=== PATIENT | female | born 1990 | race Caucasian/White ===

== ENCOUNTER 2016-07-14 05:30 | Emergency (ER) | payer OTHER ==
[~2016-07-14] VITALS: Ht 162.6 cm; Wt 77.0 kg
[~2016-07-14 05:30] MED LIST: ABL10 PO; GABA1CAP5 PO; TRAZ100T29 PO
[2016-07-14 05:35] VITALS: BP 105/64; PULSE 81; TEMP 36.8; O2SAT 97; Ht 162.6 cm; Wt 77.0 kg
[2016-07-14] MEDS ORDERED: IBUPROFEN 600 MG TAB PO STA (05:55)
[2016-07-14] MEDS ORDERED: MTR800 PO (06:18)
--- NOTE | 2016-07-14 06:22 | EMERGENCY ROOM VISIT NOTE ---
History Report prepared by Tate: Akila Reeder Under the Supervision of: Dr. Danica England D.O. 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 She hit her elbows on the edge of the bathtub when she fell and also landed with her lower back on the edge of the tub. She is now complaining of lower back pain secondary to her fall. Her pain is worse on the right side and it radiates up into her midback. Movement, walking, and palpation exacerbate her pain. She rates her pain as an 8.5/10 in severity. Her fiance had to help her up as she was unable to get up on her own. She is unable to lay flat because of the pain and states that she was not able to sleep. The patient took ibuprofen for pain at home. She has chronic lower back pain, but states that this pain feels different from her chronic pain. She denies LOC. 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 A total of 10 systems reviewed and were otherwise negative. Past Medical & Surgical Medical Problems: (1) Migraine (2) Stomach problems Surgical Problems: (1) Hx of tubal ligation Family History Diabetes mellitus Gallbladder disease Hypertension Kidney disease Kidney stones Social History Smoking Status: Former Smoker Alcohol Use: occasionally Drug Use: none Marital Status: in relationship Housing Status: lives with significant other Occupation Status: employed Current/Historical Medications Scheduled Aripiprazole (Abilify), 10 MG PO QAM Gabapentin (Neurontin), 400 MG PO TID Trazodone Hcl (Trazodone), 100 MG PO HS Scheduled PRN Ibuprofen (Ibuprofen), 800 MG PO Q8 PRN for Pain Allergies Coded Allergies: Ketorolac Tromethamine (Verified Allergy, Intermediate, RASH, GI UPSET, 07/14/16) Tramadol (Verified Allergy, Intermediate, SAH, GI UPSET, 07/14/16) Uncoded Allergies: ONIONS (Adverse Reaction, Intermediate, N/V/D, 05/17/15) Physical Exam Vital Signs Date Time Temp Pulse Resp B/P Pulse Ox O2 Delivery O2 Flow Rate FiO2 07/14/16 05:35 36.8 81 20 105/64 97 Room Air Physical Exam HEENT: Head - normocephalic and atraumatic. Pupils are equal, round, and reactive to light. Extraocular eye muscles are intact and sclera are anicteric. Nose - moist nasal mucosa without evidence of trauma or discharge. Mouth - moist buccal mucosa with no trauma to the teeth or signs of malocclusion. Neck: The neck is supple and there is no pain to palpation over the posterior cervical spine and no obvious step-offs or deformities. There is no JVD or tracheal deviation. Chest: There are no signs of deformities, contusions or abrasions to the chest wall. There is no obvious crepitus or paradoxical chest rise. Heart: Regular, rate, and rhythm. There is a normal S1 and S2 with no murmurs, clicks, or gallops appreciated. Lungs: Clear to auscultation bilaterally with no wheezes, rales, or rhonchi. Abdomen: Soft, completely nontender, nondistended, with good bowel sounds. There is no sign of trauma such as contusions, abrasions or penetrations. There are no palpable pulsatile masses or hepatosplenomegaly. There is no guarding, rigidity, or rebound noted. Pelvis: Stable to rock and compression. Extremities: Contusion to the right elbow. There are easily palpable peripheral pulses. Neuro: The patient is awake and alert and easily able to follow commands. Muscle strength is 5 out of 5 in all 4 extremities. Otherwise, neuro exam is unremarkable. Back: There are no obvious step-offs or deformities noted. There was a contusion to the superior midlumbar spine and pain with palpation of that area as well as over the right low back. Medical Decision & Procedures ER Provider Diagnostic Interpretation: Patient refused her x-rays Medications Administered Medications (Trade) Dose Ordered Sig/Leticia Route Start Time Stop Time Status Last Admin Dose Admin Ibuprofen (Motrin Tab) 600 mg NOW STAT PO 07/14/16 05:55 07/14/16 05:56 DC 07/14/16 06:02 600 MG Procedure Medications Administered: Ibuprofen 600 mg PO ED Course 0544: Past medical records reviewed. The patient was evaluated in room A10. A complete history and physical exam was performed. I questioned her about her previous narcotic use for her chronic back pain and she informed me that her last dose was from Dr. Ma in December 2015. I referenced the PDMP and she had 120 tabs of 10mg oxycodone on 05/09/2016. She said that she did not want to tell me this because she thought that I would not treat her pain today. 0555: Ibuprofen 600 mg PO 0624: I reassessed the patient at this time The patient refused her x-ray. She states that it would be too painful for her to lay on the x-ray table. She was discharged home. Medical Decision The patient is a 26 year old female who presents to the ED with back pain secondary to a fall. Differential diagnosis includes renal contusion, lumbar strain, lumbar contusion, lumbar fracture. The patient is refusing her plain films. She became very upset after I questioned her about the large doses of prescribed narcotics from the entire fall 2015. The patient lists an allergy to tramadol and Toradol. I recommended that she use Tylenol or Advil. She will need to follow-up with Dr. Best who is cared for her in the past with regards to this new back pain. [place] Drug Monitoring Program Search Results: patient reviewed within database Impression Primary Impression: Low back pain Additional Impression: Fall from slipping on slippery surface Scribe Attestation The scribe's documentation has been prepared under my direction and personally reviewed by me in its entirety. I confirm that the note above accurately reflects all work, treatment, procedures, and medical decision making performed by me. Departure Information Dispostion Home / Self-Care Referrals Duyen Ma MD (PCP) Forms HOME CARE DOCUMENTATION FORM, IMPORTANT VISIT INFORMATION Patient Instructions My [facility] Additional Instructions Rest. Apply ice to the right low back. ibuprofen - 600mg every 6 hours with food for pain Follow up with Dr. Best Problem Qualifiers Primary Impression: Low back pain Chronicity: acute Back pain laterality: right Additional Impression: Fall from slipping on slippery surface Encounter type: initial encounter Qualified Codes: W01.0XXA - Fall on same level from slipping, tripping and stumbling without subsequent striking against object, initial encounter
== END 2016-07-14 06:37 | disposition home or self-care (01) ==
LOC: C.EDB 05:31 → C.EDA 06:37
DX: M54.5 Low back pain (principal); S50.01XA Contusion of right elbow, initial encounter; S30.0XXA Contusion of lower back and pelvis, initial encounter; W18.2XXA Fall in (into) shower or empty bathtub, initial encounter; Y92.002 Bathroom of unspecified non-institutional (private) residence as the place of occurrence of the external cause; Y93.E1 Activity, personal bathing and showering; G43.909 Migraine, unspecified, not intractable, without status migrainosus; Z83.3 Family history of diabetes mellitus; Z82.49 Family history of ischemic heart disease and other diseases of the circulatory system; Z84.1 Family history of disorders of kidney and ureter; Z87.891 Personal history of nicotine dependence

== ENCOUNTER 2017-02-11 01:33 | Emergency (ER) | payer OTHER ==
[~2017-02-11] VITALS: Ht 162.6 cm; Wt 68.8 kg
[~2017-02-11 01:33] MED LIST changes: +MTR800 PO
[2017-02-11 01:36] VITALS: TEMP 36.9; Ht 162.6 cm; Wt 68.8 kg
[2017-02-11] MEDS ORDERED: CLON0.5T3 PO (01:50)
[2017-02-11] MEDS ORDERED: DULO-24 PO (01:50)
[2017-02-11 01:56] VITALS: O2SAT 99
[2017-02-11] MEDS ORDERED: METHOCARBAMOL 100 MG/ML 10 ML VIAL IV ONE (02:00)
[2017-02-11 02:10] LABS: BASO % 0.2 %; BASO ABS # 0.02 K/uL (0-0.2); COMPLETE YES; EOS % 1.7 %; HEMATOCRIT 45.8 % (37-47); IG% 0.2 %; LYMPH % 33.2 %; LYMPH ABS # 2.85 K/uL (1.2-3.4); MEAN CELL VOLUME 84.3 fL (80-100); MEAN CORPUSCULAR HEMOGLOBIN 27.6 pg (25-34); MEAN CORPUSCULAR HGB CONC 32.8 g/dl (32-36); MEAN PLATELET VOLUME 11.8 fL (7.4-10.4); MONO % 10.4 %; NEUT % 54.3 %; PLATELET COUNT 213 K/uL (130-400); RED BLOOD COUNT 5.43 M/uL (4.2-5.4); WHITE BLOOD COUNT 8.58 K/uL (4.8-10.8)
[2017-02-11] MEDS ORDERED: BACLOFEN 10 MG TAB PO STA (02:13)
--- NOTE | 2017-02-11 02:36 | EMERGENCY ROOM VISIT NOTE ---
History Report prepared by Keenaibe: Joan Zamora Under the Supervision of: Dr. Sarkis Cam D.O. First contact with patient: 01:35 Chief Complaint: BACK PAIN Stated Complaint: BACK PAIN History of Present Illness The patient is a 26 year old female who presents to the Emergency Room by EMS with complaints of constant severe shooting back pain starting about 4 hours ago. The patient notes that she was diagnosed with low cartilage between her L5 , L6, and L7 by a Dr. Ann-Orthopedic Surgeon. She notes when she went to lay down for bed 4 hours ago she could not move. She has tingling and numbness in her legs. For pain, the patient takes 800 mg of ibuprofen and gabapentin 3 times a day. Source of History: patient Onset: 4 hours ago Position: back Quality: other (shooting) Timing: constant Associated Symptoms: + numbness Note: Pt notes tingling in her legs Review of Systems See HPI for pertinent positives and negatives. A total of ten systems were reviewed and were otherwise negative. Past Medical & Surgical Medical Problems: (1) Migraine (2) Stomach problems Surgical Problems: (1) Hx of tubal ligation Family History Diabetes mellitus Gallbladder disease Hypertension Kidney disease Kidney stones Social History Smoking Status: Former Smoker Alcohol Use: occasionally Drug Use: none Marital Status: in relationship Housing Status: lives with significant other Occupation Status: employed Current/Historical Medications Scheduled Aripiprazole (Abilify), 10 MG PO QAM Baclofen (Baclofen), 10 CAP PO BID Cephalexin Monohydrate (Keflex), 500 MG PO TID Duloxetine HCl (Cymbalta), 1 CAP PO DAILY Methylprednisolone (Medrol Dosepak), 1 PKT PO UD Trazodone Hcl (Trazodone), 100 MG PO HS Scheduled PRN Clonazepam (Klonopin), 1 TAB PO DAILY PRN for Anxiety Ibuprofen (Ibuprofen), 800 MG PO Q8 PRN for Pain Allergies Coded Allergies: Ketorolac Tromethamine (Verified Allergy, Intermediate, RASH, GI UPSET, 02/11/17) Tramadol (Verified Allergy, Intermediate, SAH, GI UPSET, 02/11/17) Uncoded Allergies: ONIONS (Adverse Reaction, Intermediate, N/V/D, 05/17/15) Physical Exam Vital Signs Date Time Temp Pulse Resp B/P (MAP) Pulse Ox O2 Delivery O2 Flow Rate FiO2 02/11/17 05:30 64 98 Room Air 02/11/17 05:11 110/73 02/11/17 04:14 78 18 105/67 100 Room Air 02/11/17 02:16 71 02/11/17 01:59 99 Room Air 02/11/17 01:56 99 Room Air 02/11/17 01:56 98 Room Air 02/11/17 01:36 36.9 76 18 99/63 98 Room Air Physical Exam GENERAL: Awake, alert, uncomfortable -appearing, in no distress HENT: Normocephalic, atraumatic. Oropharynx unremarkable. EYES: Normal conjunctiva. Sclera non-icteric. NECK: Supple. No nuchal rigidity. FROM. No JVD. RESPIRATORY: Clear to auscultation. CARDIAC: Regular rate, normal rhythm. Extremities warm and well perfused. Pulses equal. ABDOMEN: Soft, non-distended. No tenderness to palpation. No rebound or guarding. No masses. BACK: paraspinal tenderness right lumbar region with palpation. RECTAL: Deferred. MUSCULOSKELETAL: Chest examination reveals no tenderness. The back is symmetrical on inspection without obvious abnormality. There is no CVA tenderness to palpation. No joint edema. LOWER EXTREMITIES: Calves are equal size bilaterally and non-tender. No edema. No discoloration. NEURO: Vascularly intact distally in bilateral lower extremities, normal lower reflexes, normal proprioception; Pt able to move legs on stretcher; SKIN: No rash or jaundice noted. Medical Decision & Procedures ER Provider Diagnostic Interpretation: X ray results as stated below per my interpretation and radiologist interpretation. Other radiology results as stated below per my review and radiologist interpretation MRI L SPINE: L5-S1 mild disc desiccation, posterior disc bulge with central to left paracentral disc protrusion and associated small annular fissure. Mild foraminal narrowing. Mild mass effect on ventral sac without significant canal narrowing. Appearance is similar to prior MRI 08/17/15, except that the annular fissure is better demonstrated on current exam. Disc signal and height are otherwise maintained. Vertebral body height and bone marrow signal are maintained. No evidence of fracture. Conus medullaris terminates at L1. Visualized distal cord and cauda equina roots are unremarkable. No abnormal enhancement. Radiologist: Ajay Lam Laboratory Results 02/11/17 02:02 Red Blood Count 5.43, Mean Corpuscular Volume 84.3, Mean Corpuscular Hemoglobin 27.6, Mean Corpuscular Hemoglobin Concent 32.8, Mean Platelet Volume 11.8, Neutrophils (%) (Auto) 54.3, Lymphocytes (%) (Auto) 33.2, Monocytes (%) (Auto) 10.4, Eosinophils (%) (Auto) 1.7, Basophils (%) (Auto) 0.2, Neutrophils # (Auto ) 4.65, Lymphocytes # (Auto) 2.85, Monocytes # (Auto) 0.89, Eosinophils # (Auto ) 0.15, Basophils # (Auto) 0.02 02/11/17 01:55 Test 02/11/17 01:55 02/11/17 02:02 02/11/17 02:30 Anion Gap 8.0 mmol/L (3-11) Est Creatinine Clear Calc Drug Dose 109.3 ml/min Estimated GFR () 128.4 Estimated GFR (Non- 110.8 BUN/Creatinine Ratio 9.8 (10-20) Bedside Glucose 96 mg/dl (70-90) Calcium Level 8.2 mg/dl (8.5-10.1) Total Bilirubin 0.5 mg/dl (0.2-1) Direct Bilirubin 0.1 mg/dl (0-0.2) Aspartate Amino Transf (AST/SGOT) 7 U/L (15-37) Alanine Aminotransferase (ALT/SGPT) 12 U/L (12-78) Alkaline Phosphatase 46 U/L (45-117) Total Protein 7.0 gm/dl (6.4-8.2) Albumin 3.8 gm/dl (3.4-5.0) Thyroid Stimulating Hormone (TSH) 0.471 uIu/ml (0.300-4.500) White Blood Count 8.58 K/uL (4.8-10.8) Red Blood Count 5.43 M/uL (4.2-5.4) Hemoglobin 15.0 g/dL (12.0-16.0) Hematocrit 45.8 % (37-47) Mean Corpuscular Volume 84.3 fL (80-100) Mean Corpuscular Hemoglobin 27.6 pg (25-34) Mean Corpuscular Hemoglobin Concent 32.8 g/dl (32-36) Platelet Count 213 K/uL (130-400) Mean Platelet Volume 11.8 fL (7.4-10.4) Neutrophils (%) (Auto) 54.3 % Lymphocytes (%) (Auto) 33.2 % Monocytes (%) (Auto) 10.4 % Eosinophils (%) (Auto) 1.7 % Basophils (%) (Auto) 0.2 % Neutrophils # (Auto) 4.65 K/uL (1.4-6.5) Lymphocytes # (Auto) 2.85 K/uL (1.2-3.4) Monocytes # (Auto) 0.89 K/uL (0.11-0.59) Eosinophils # (Auto) 0.15 K/uL (0-0.5) Basophils # (Auto) 0.02 K/uL (0-0.2) RDW Standard Deviation 38.3 fL (36.4-46.3) RDW Coefficient of Variation 12.6 % (11.5-14.5) Immature Granulocyte % (Auto) 0.2 % Immature Granulocyte # (Auto) 0.02 K/uL (0.00-0.02) Urine Color YELLOW Urine Appearance CLOUDY (CLEAR) Urine pH >= 9.0 (4.5-7.5) Urine Specific [place] 1.024 (1.000-1.030) Urine Protein NEG (NEG) Urine Glucose (UA) NEG (NEG) Urine Ketones NEG (NEG) Urine Occult Blood TRACE (NEG) Urine Nitrite NEG (NEG) Urine Bilirubin NEG (NEG) Urine Urobilinogen NEG (NEG) Urine Leukocyte Esterase LARGE (NEG) Urine WBC (Auto) >30 /hpf (0-5) Urine RBC (Auto) 5-10 /hpf (0-4) Urine Hyaline Casts (Auto) 0 /lpf (0-5) Urine Epithelial Cells (Auto) 20-30 /lpf (0-5) Urine Bacteria (Auto) 1+ (NEG) Laboratory results reviewed by me Medications Administered Medications (Trade) Dose Ordered Sig/Leticia Route Start Time Stop Time Status Last Admin Dose Admin Baclofen (Lioresal Tab) 10 mg NOW STAT PO 02/11/17 02:13 02/11/17 02:14 DC 02/11/17 02:30 10 MG Morphine Sulfate (MoRPHine SULFATE INJ) 4 mg NOW STAT IV 02/11/17 04:53 02/11/17 04:54 DC 02/11/17 04:59 4 MG Ondansetron HCl (Zofran Inj) 4 mg NOW STAT IV 02/11/17 04:53 02/11/17 04:54 DC 02/11/17 04:59 4 MG Ceftriaxone Sodium (Rocephin Inj) 1 gm NOW STAT IV 02/11/17 04:53 02/11/17 04:54 DC 02/11/17 04:59 1 GM Dexamethasone Sodium Phosphate (Decadron Inj) 10 mg NOW STAT IV 02/11/17 05:02 02/11/17 05:03 DC 02/11/17 05:15 10 MG ED Course 0142: The patient was evaluated in room A3. A complete history and physical exam was performed. 0213: Baclofen 10 mg PO. 0330: Gadavist 6.5 mmol IV. 0453: Rocephin Inj 1 gm IV, Zofran Inj 4 mg IV, Morphine Sulfate 4 mg IV. 0502: Decadron Inj 10 mg IV. 0600: I reevaluated the patient. Discussed results and discharge instructions: She verbalized understanding and agreement. The patient is ready for discharge. Medical Decision Differential diagnosis includes lumbar strain, lumbar sprain, herniated disc, sciatica, radiculopathy, r/o cauda equina syndrome Pt able to roll, move legs, better after meds and steroids; MRI no change from ; no distress; will treat for uti as well; Case discussed with hospitalist, case reviewed with patient and mother at bedside. MRI is unchanged from August 2015. Patient was able to stand and ambulate in the emergency department. Patient will require strict follow-up with her orthopedic physician and return for worsening of symptoms Medication Reconcilliation Current Medication List: was personally reviewed by me Blood Pressure Screening Patient's blood pressure: Normal blood pressure Impression Primary Impression: Low back pain Additional Impressions: Radiculopathy of lumbosacral region UTI (urinary tract infection) Scribe Attestation The scribe's documentation has been prepared under my direction and personally reviewed by me in its entirety. I confirm that the note above accurately reflects all work, treatment, procedures, and medical decision making performed by me. Departure Information Dispostion Home / Self-Care Prescriptions Methylprednisolone (MEDROL DOSEPAK) 4 Mg Alvino 1 PKT PO UD for 6 Days, #1 PKT Prov: Sarkis Cam, DO 02/11/17 Baclofen (Baclofen) 10 Mg Tab 10 CAP PO BID for 5 Days, #100 CAP Prov: Sarkis Cam, DO 02/11/17 Cephalexin Monohydrate (Keflex) 500 Mg Cap 500 MG PO TID for 5 Days, #15 CAP Prov: Sarkis Cam, DO 02/11/17 Referrals Duyen Ma MD (PCP) Forms HOME CARE DOCUMENTATION FORM, IMPORTANT VISIT INFORMATION Patient Instructions ED UTI Cystitis Female, Lumbar Radiculopathy, My [facility] Problem Qualifiers
[2017-02-11 02:39] LABS: BUN/CREATININE RATIO 9.8 (10-20); CALCIUM 8.2 mg/dl (8.5-10.1); CREATININE 0.75 mg/dl (0.60-1.20); POTASSIUM 3.5 mmol/L (3.5-5.1)
[2017-02-11 02:42] LABS: URINE APPEARANCE CLOUDY (CLEAR); URINE BILIRUBIN NEG (NEG); URINE COLOR YELLOW; URINE EPITHELIAL CELL AUTO 20-30 /lpf (0-5); URINE NITRITE NEG (NEG); URINE PH >= 9.0 (4.5-7.5); URINE SPECIFIC GRAVITY 1.024 (1.000-1.030); UROBILINOGEN NEG (NEG)
[2017-02-11 02:50] LABS: THYROID STIMULATING HORMONE 0.471 uIu/ml (0.300-4.500)
[2017-02-11 03:04] LABS: REVIEW REQ? NO
[2017-02-11 03:05] LABS: MANUAL MICROSCOPIC REQUIRED? NO; SULFASALICYLIC ACID NEG (NEG)
[2017-02-11] MEDS ORDERED: GADAVIST IV PRN (03:30)
[2017-02-11] MEDS ORDERED: ONDANSETRON INJ 2 MG/ML 2 ML VIAL IV STA (04:53)
[2017-02-11] MEDS ORDERED: CEFTRIAXONE SOD INJ 1 GM ADDVIAL IV STA (04:53)
[2017-02-11] MEDS ORDERED: MoRPHine SULFATE 4 MG/ML 1 ML CARP\\VIAL IV STA (04:53)
[2017-02-11] MEDS ORDERED: DEXAMETHASONE SOD INJ 4 MG/ML VIAL IV STA (05:02)
[2017-02-11] MEDS ORDERED: CEPH500C PO (05:50)
[2017-02-11] MEDS ORDERED: LRS10 PO (05:50)
[2017-02-11] MEDS ORDERED: METH4PAK PO (05:56)
[2017-02-11 06:15] VITALS: BP 113/74; PULSE 72; O2SAT 99
--- NOTE | 2017-02-11 07:42 | DIAGNOSTIC IMAGING REPORT ---
LUMBAR SPINE MRI WITH AND WITHOUT CONTRAST HISTORY: Low back pain. Loss of movement in legs due to pain. TECHNIQUE: Multiplanar multisequence MRI of the lumbar spine was performed both before and after the intravenous administration of contrast. COMPARISON: Lumbar spine 01/21/2016. Lumbar spine MRI 08/17/2015. FINDINGS: For the purpose of the report the L5-S1 disc space will be located on axial image 27 of 30. Alignment and curvature intact. No fractures. Mild disc desiccation L5-S1, unchanged. The conus terminates at the L1-L2 disc space level. Paraspinal soft tissues are unremarkable. No abnormal enhancement. L1-L2: No significant central canal or neural foraminal narrowing. L2-L3: No significant central canal or neural foraminal narrowing. L3-L4: No significant central canal or neural foraminal narrowing. L4-L5: No significant central canal or neural foraminal narrowing. L5-S1: Small central/left paracentral focal disc protrusion without significant central canal or neural foraminal narrowing. IMPRESSION: No change in the small central/left paracentral focal disc protrusion at L5-S1. No significant central canal or neural foraminal narrowing. Electronically signed by: Cisco Wright M.D. 02/11/2017 7:41 AM Dictated Date/Time: 02/11/2017 7:36 AM
== END 2017-02-11 06:16 | disposition home or self-care (01) ==
LOC: EDBD 01:33 → C.EDA 01:34
DX: M54.5 Low back pain (principal); M54.16 Radiculopathy, lumbar region; N39.0 Urinary tract infection, site not specified; Z87.891 Personal history of nicotine dependence; Z87.19 Personal history of other diseases of the digestive system; Z98.51 Tubal ligation status; Z79.899 Other long term (current) drug therapy; Z88.5 Allergy status to narcotic agent; Z83.3 Family history of diabetes mellitus; Z83.79 Family history of other diseases of the digestive system; Z82.49 Family history of ischemic heart disease and other diseases of the circulatory system; Z84.1 Family history of disorders of kidney and ureter